=== PATIENT | female | born 2000 | race Caucasian/White ===

== ENCOUNTER 2022-10-23 18:00 | Inpatient (IN) ==
[2022-10-23] MEDS ORDERED: LORazepam 2 MG/1 ML VIAL IM STA ×2 (18:44→19:45)
[2022-10-23 20:15] LABS: Albumin Level 5.1 gm/dl (3.4-5.0); Bilirubin,Total 0.7 mg/dl (0.2-1.0); Calcium 9.7 mg/dl (8.6-10.3); Potassium 3.5 mmol/L (3.5-5.1)
[2022-10-23 20:16] LABS: Basophils # (auto) 0.05 K/uL (0-0.2); Basophils % (auto) 0.3 %; Hematocrit (blood only) 36.1 % (37.0-47.0); Immature Granulocytes # (auto) 0.11 K/uL (0.01-0.20); Immature Granulocytes % (auto) 0.6 %; Lymphocytes # (auto) 1.32 K/uL (1.2-3.4); Lymphocytes % (auto) 6.8 %; Mean Corpuscular Hemoglobin 27.5 pg (25.0-34.0); Mean Corpuscular Hgb Conc 33.2 g/dL (32.0-36.0); Mean Corpuscular Volume 82.6 fL (80.0-100.0); Mean Platelet Volume 10.5 fL (9.4-12.4); Monocytes # (auto) 0.76 K/uL (0.11-0.59); Monocytes % (auto) 3.9 %; Neutrophils # (auto) 17.21 K/uL (1.40-6.50); Neutrophils % (auto) 88.4 %; Platelet Count 420 K/uL (130-400); RDW Coefficient of Variation 13.2 % (11.5-14.5); RDW Standard Deviation 39.8 fL (36.4-46.3); Red Blood Count 4.37 M/uL (4.20-5.40); White Blood Count 19.45 K/ul (4.8-10.8)
[2022-10-23 20:21] LABS: Albumin Globulin Ratio 1.7 (0.9-2); Appearance Urine Cloudy (Clear); BUN Creatinine Ratio 16.9 (10-20); Bacteria Urine Automated 1+ (Negative); Bilirubin Urine Negative (Negative); Blood Urine Negative (Negative); Color Urine Yellow; Creatinine Clr Calc Pharmacy 104.5 ml/min; Epithelial Cell Urine Auto >30 /lpf (0-5); Est GFR (African American) 107.4 ml/min; Est GFR (Non-African American) 92.6 ml/min; Glucose Urine UA Negative (Negative); Ketones Urine 4+ (Negative); Leukocyte Esterase Urine Trace (Negative); Nitrite Urine Negative (Negative); Protein Urine 1+ (Negative); RBC Urine Automated 0-4 /hpf (0-4); Specific Gravity Urine 1.028 (1.000-1.030); Total Protein 8.1 gm/dl (6.0-8.3); Urobilinogen Urine Negative (Negative); pH Urine 5.5 (4.5-7.5)
[2022-10-23 20:22] LABS: Acetaminophen < 3 ug/ml (10-30); Salicylate < 3.0 mg/dl (3.0-30)
[2022-10-23] MEDS ORDERED: LACTATED RINGER'S 2,000 ML IV ONE (20:44)
[2022-10-23 21:16] LABS: Amphetamines+Metham, Urine Neg (Neg); Barbiturates, Urine Neg (Neg); Benzodiazepine, Urine Neg (Neg); Cocaine, Urine Neg (Neg); MDMA (Ecstacy), Urine Neg (Neg); Methadone, Urine Neg (Neg); Opiate, Urine Neg (Neg); Phencyclidine, Urine Neg (Neg)
[2022-10-23] MEDS ORDERED: LACTATED RINGER'S 1,000 ML IV ONE (23:43)
[2022-10-24 01:17] LABS: BUN Creatinine Ratio 15.3 (10-20); Calcium 8.6 mg/dl (8.6-10.3); Creatinine Clr Calc Pharmacy 129.2 ml/min; Est GFR (African American) 138.7 ml/min; Est GFR (Non-African American) 119.7 ml/min
--- NOTE | 2022-10-24 01:53 | Emergency Department Note ---
Impression & Plan Anxiety, Sleep deprivation ED Provider Note ED Provider Note NAME: SUZAN CARDOSO AGE:22 SEX: Female : 2000 ARRIVES VIA: Private vehicle INFORMANT: Patient ED PROVIDER(s): Rochelle Lozano DO CHIEF COMPLAINT: Mental health evaluation HPI: This is a 22-year-old female who arrives for mental health evaluation. Pat ient with a history of anxiety, and significant other bedside states she has not slept in 3 days. He states she was recently admitted for inpatient mental health treatment, and had been taking her medications routinely until Thursday when she began having difficulty sleeping and having increased anxiety. He states she has not had much to eat or drink these last 3 days additionally. No recent trauma. He states she does have episodes where she seems to become very weak and almost collapsed although he has been catching her. He states she has not struck her head not sustained any significant injury. Patient is not on anticoagulation or antiplatelet therapy. Boyfriend provides most of the h istory. Patient can answer some simple questions and will follow some commands. PAST MEDICAL HISTORY:See Below PAST SURGICAL HISTORY:See Below FAMILY HISTORY:See Below SOCIAL HISTORY:See Below HOME MEDICATIONS:See Below ALLERGIES:See Below VITALS:See Below PHYSICAL EXAMINATION: GENERAL: alert, well nourished, no distress, non-toxic EYE EXAM: normal conjunctiva, PERRL and EOM's grossly intact OROPHARYNX: no exudate, no erythema, lips, buccal mucosa, and tongue normal and mucous membranes are dry NECK: supple, no nuchal rigidity, no adenopathy, non-tender LUNGS: Clear to auscultation. Normal chest wall mechanics, no w/r/r HEART: no murmurs, S1 normal and S2 normal CHEST: b/l nipple piercings ABDOMEN: abdomen soft, non-tender, normo-active bowel sounds, no masses, no rebound or guarding. BACK: Back is symmetrical on inspection and there is no deformity, no midline tenderness, no CVA tenderness. SKIN: no rashes, no petechiae UPPER EXTREMITIES: upper extremities are grossly normal. FROM, nml pulses b/l. LOWER EXTREMITIES: No pitting edema. FROM, nml pulses b/l. Contusion noted to the left prepatellar region, no joint effusion, no bony tenderness with palpa tion. NEURO EXAM: Follows commands, knows her boyfriend and where she is at, disorganized thinking otherwise, cranial nerves II-XII grossly intact, normal speech, no facial droop,nogross weakness of arms, no gross weakness of legs. Gross sensation intact. No ataxia. Vital Signs: reviewed and remarkable Differential Diagnosis: mood disorder, infection, hypoglycemia, electrolyte abnormalities, noncompliance, dysrhythmia, dehydration, substance abuse, as well as others were considered. MEDICAL DECISION MAKING: This is a 22-year-old female who presents emergency department due to concern for increased anxiety and significant insomnia. Patient would follow commands and was oriented on arrival although had bizarre behavior and difficulty recalling events from the last 3 days. Boyfriend at bedside stated there had been significant sleep deprivation. Patient given IM Ativan with improvement. Labs drawn and sent, IV established, patient started on IV fluids due to significant dehydration. 3 L of IV fluid were given and a repeat BMP drawn and sent which was improved. I feel the initial anion gap is likely due to dehydration. Patient was able to rest here and was more clear with organized thinking initially from waking. Patient was evaluated by case management and initially felt safe for discharge, however friends at bedside began to verbalize their concern and describe other behaviors recently and patient became more agitated and disorganized again. Patient's boyfriend now filling out 302. Case signed out pending additional evaluation and disposition. I do not suspect occult infectious etiology at this time despite leukocytosis. I suspect this is more likely stress to margination. I do not suspect occult GREASE WORKER infection, CVA, ICH. No reported significant trauma. Contusions noted bilateral knees, however no bony tenderness to palpation and no joint effusions. I do not suspect occult fracture. Patient was ambulatory without any complaints of pain. Consultation(s): 0220: Patient seen and evaluated by case management. Patient now clear and organized in her thinking. States has been sleep deprived and smoking too much marijuana. Admits to playing frequent video games for hours on and throughout the day. Admits to not taking medications as prescribed. Denies any SI or HI. feels much more calm now and feels as though she can safely go home. 0350: Friends at bedside now filing 302 petition bc they fell she cannot care for herself and they cannot redirect or help her. They feel she performs dangerous actions and is noncompliant with her medications. ER Treatment Provided: See below 0424: Patient signed out to Dr. Samson. Diagnostics Interpreted By Me: -ECG: [] -Cardiac Monitoring: An order was placed for continuous cardiac monitoring. The monitor shows a rate of 80 with normal sinus rhythm. -Laboratory studies: As stated above and show below. -Imaging studies: [] Triage Nursing Note Reviewed Prior/Outside Records Reviewed Past Med/Surg History Medical History Depression Surgical History [place] teeth removed Family History Grandfather (Maternal) Myocardial infarction Mother No problems noted. Father No problems noted. Brother No problems noted. Sister No problems noted. Grandmother (Maternal) Ovarian cancer pt believes its in the ovary Denies family history of Prostate cancer Breast cancer Colorectal cancer Social History Smoking Status: Unknown if ever smoked Second Hand Exposure: No; Do You Dip or Chew Tobacco: No; Hx Alcohol Use: No Hx Substance Use: No Preferred Language: Lithuanian Communication Ability: Effective Visual Impairment: No Limitations Hearing Ability: Normal Soils Engineer Required: No Beliefs That Will Affect Care: None marital status: Single Current Living Situation: Other Current Living Situation Comment: LIVES WITH ROOMATE current occupational status: employed current occupation: [employer] Feels Safe at Home: No Childhood Exposure to Second-Hand Smoke: No Diet: regular caffeine: No Dental Care, Regularly: Yes Physical Activity Frequency: Does not Exercise Seatbelt Use: always Sunscreen Use: Yes Gender Identity: Nonbinary Assistive Devices: None Allergies Allergies Allergy/AdvReac Type Severity Reaction Status Date / Time egg Allergy Unknown Unknown Unverified 10/15/22 18:24 Penicillins Allergy HIVES Verified 10/15/22 18:24 Home Meds Previous Rx's Medication Instructions Recorded hydroxyzine HCl 25 mg tablet 25 mg PO BID PRN anxiety/panic 10/06/22 attack 30 days #60 tabs hydroxyzine HCl 50 mg tablet 50 mg PO HS PRN insomnia 30 days 10/06/22 #30 tabs lamotrigine 100 mg tablet 50 mg PO DAILY MDD 30 days #15 tabs 10/06/22 venlafaxine 75 mg capsule,extended 75 mg PO QAM MDD/INDIO 30 days #30 10/06/22 release 24 hr caps Results & Data (ED) Vital Signs Vital Signs - 24 hr 10/23/22 17:46 10/24/22 00:23 10/24/22 04:00 Temperature 36.5 C Temperature Source Oral Pulse Rate 109 H Pulse Rate [Right Finger] 83 100 H Pulse Rhythm [Right Finger] Regular Regular Pulse Strength [Right Finger] Normal Normal Respiratory Rate 16 18 16 Respiratory Effort / Characteristics Non-Labored Non-Labored Spontaneous Respiratory Depth Normal Normal Respiratory Pattern Regular Regular Blood Pressure 138/81 Blood Pressure [Right Arm] 106/69 143/79 H Blood Pressure Mean 100 Blood Pressure Mean [Right Arm] 81 100 Blood Pressure Position [Right Arm] Lying Pulse Oximetry 98 100 100 Oxygen Delivery Method Room Air Room Air Room Air Sepsis Recent Fever Within 48 Hours No Sepsis New/Unexplained Change in Mental Status Yes Sepsis Action Taken by Nursing No Action Required Laboratory Data 10/23/22 19:30 10/24/22 00:45 Lab Results 10/23/22 10/23/22 10/23/22 Range/Units 19:30 19:30 19:30 WBC 19.45 H (4.8-10.8) K/ul RBC 4.37 (4.20-5.40) M/uL Hgb 12.0 (12.0-16.0) g/dl Hct 36.1 L (37.0-47.0) % MCV 82.6 (80.0-100.0) fL MCH 27.5 (25.0-34.0) pg MCHC 33.2 (32.0-36.0) g/dL RDW Std Deviation 39.8 (36.4-46.3) fL RDW Coeff of Frederic 13.2 (11.5-14.5) % Plt Count 420 H (130-400) K/uL MPV 10.5 (9.4-12.4) fL Immature Gran % (Auto) 0.6 % Neut % (Auto) 88.4 % Lymph % (Auto) 6.8 % [place] % (Auto) 3.9 % Eos % (Auto) 0.0 % Baso % (Auto) 0.3 % Neut # (Auto) 17.21 H (1.40-6.50) K/uL Lymph # (Auto) 1.32 (1.2-3.4) K/uL [place] # (Auto) 0.76 H (0.11-0.59) K/uL Eos # (Auto) 0.00 (0-0.50) K/uL Baso # (Auto) 0.05 (0-0.2) K/uL Immature Gran # (Auto) 0.11 (0.01-0.20) K/uL Sodium 139 (136-145) mmol/L Potassium 3.5 (3.5-5.1) mmol/L Chloride 107 (98-107) mmol/L Carbon Dioxide 15 L (21-32) mmol/L Anion Gap 17 H (3-11) BUN 15 (6-23) mg/dl Creatinine 0.89 (0.6-1.2) mg/dl Est Cr Clr Drug Dosing 104.5 ml/min Est GFR ( Amer) 107.4 ml/min Est GFR (Non-Af Amer) 92.6 ml/min BUN/Creatinine Ratio 16.9 (10-20) Glucose 77 (70-99(Fasting)) mg/dl Calcium 9.7 (8.6-10.3) mg/dl Total Bilirubin 0.7 (0.2-1.0) mg/dl AST 28 (13-39) U/L ALT 16 (7-52) U/L Alkaline Phosphatase 87 (34-104) U/L Total Protein 8.1 (6.0-8.3) gm/dl Albumin 5.1 H (3.4-5.0) gm/dl Globulin 3.0 (2.5-4.0) gm/dl Albumin/Globulin Ratio 1.7 (0.9-2) TSH 0.730 (0.300-4.500) uIu/ml Urine Color Urine Appearance (Clear) Urine pH (4.5-7.5) Ur Specific [place] (1.000-1.030) Urine Protein (Negative) Urine Glucose (UA) (Negative) Urine Ketones (Negative) Urine Blood (Negative) Urine Nitrite (Negative) Urine Bilirubin (Negative) Urine Urobilinogen (Negative) Ur Leukocyte Esterase (Negative) Urine WBC (Auto) (0-5) /hpf Urine RBC (Auto) (0-4) /hpf U Hyaline Cast (Auto) (0-5) /lpf U Epithel Cells (Auto) (0-5) /lpf Urine Bacteria (Auto) (Negative) Salicylates (3.0-30) mg/dl Urine Opiates Screen (Neg) Ur Methadone, Qual (Neg) Acetaminophen (10-30) ug/ml Urine Barbiturates (Neg) Ur Phencyclidine (PCP) (Neg) U Amphetamin/Meth Scrn (Neg) MDMA (Ecstasy) Screen (Neg) U Benzodiazepines Scrn (Neg) Ur Cocaine Metabolite (Neg) U Marijuana (THC) Screen (Neg) Ethyl Alcohol mg/dL (<10.0) mg/dl 10/23/22 10/23/22 10/23/22 Range/Units 19:30 19:30 19:30 WBC (4.8-10.8) K/ul RBC (4.20-5.40) M/uL Hgb (12.0-16.0) g/dl Hct (37.0-47.0) % MCV (80.0-100.0) fL MCH (25.0-34.0) pg MCHC (32.0-36.0) g/dL RDW Std Deviation (36.4-46.3) fL RDW Coeff of Frederic (11.5-14.5) % Plt Count (130-400) K/uL MPV (9.4-12.4) fL Immature Gran % (Auto) % Neut % (Auto) % Lymph % (Auto) % [place] % (Auto) % Eos % (Auto) % Baso % (Auto) % Neut # (Auto) (1.40-6.50) K/uL Lymph # (Auto) (1.2-3.4) K/uL [place] # (Auto) (0.11-0.59) K/uL Eos # (Auto) (0-0.50) K/uL Baso # (Auto) (0-0.2) K/uL Immature Gran # (Auto) (0.01-0.20) K/uL Sodium (136-145) mmol/L Potassium (3.5-5.1) mmol/L Chloride (98-107) mmol/L Carbon Dioxide (21-32) mmol/L Anion Gap (3-11) BUN (6-23) mg/dl Creatinine (0.6-1.2) mg/dl Est Cr Clr Drug Dosing ml/min Est GFR ( Amer) ml/min Est GFR (Non-Af Amer) ml/min BUN/Creatinine Ratio (10-20) Glucose (70-99(Fasting)) mg/dl Calcium (8.6-10.3) mg/dl Total Bilirubin (0.2-1.0) mg/dl AST (13-39) U/L ALT (7-52) U/L Alkaline Phosphatase (34-104) U/L Total Protein (6.0-8.3) gm/dl Albumin (3.4-5.0) gm/dl Globulin (2.5-4.0) gm/dl Albumin/Globulin Ratio (0.9-2) TSH (0.300-4.500) uIu/ml Urine Color Yellow Urine Appearance Cloudy A (Clear) Urine pH 5.5 (4.5-7.5) Ur Specific [place] 1.028 (1.000-1.030) Urine Protein 1+ H (Negative) Urine Glucose (UA) Negative (Negative) Urine Ketones 4+ H (Negative) Urine Blood Negative (Negative) Urine Nitrite Negative (Negative) Urine Bilirubin Negative (Negative) Urine Urobilinogen Negative (Negative) Ur Leukocyte Esterase Trace H (Negative) Urine WBC (Auto) 10-30 H (0-5) /hpf Urine RBC (Auto) 0-4 (0-4) /hpf U Hyaline Cast (Auto) 1-5 (0-5) /lpf U Epithel Cells (Auto) >30 H (0-5) /lpf Urine Bacteria (Auto) 1+ H (Negative) Salicylates < 3.0 L (3.0-30) mg/dl Urine Opiates Screen (Neg) Ur Methadone, Qual (Neg) Acetaminophen < 3 L (10-30) ug/ml Urine Barbiturates (Neg) Ur Phencyclidine (PCP) (Neg) U Amphetamin/Meth Scrn (Neg) MDMA (Ecstasy) Screen (Neg) U Benzodiazepines Scrn (Neg) Ur Cocaine Metabolite (Neg) U Marijuana (THC) Screen (Neg) Ethyl Alcohol mg/dL < 10.0 (<10.0) mg/dl 10/23/22 10/24/22 Range/Units 19:30 00:45 WBC (4.8-10.8) K/ul RBC (4.20-5.40) M/uL Hgb (12.0-16.0) g/dl Hct (37.0-47.0) % MCV (80.0-100.0) fL MCH (25.0-34.0) pg MCHC (32.0-36.0) g/dL RDW Std Deviation (36.4-46.3) fL RDW Coeff of Frederic (11.5-14.5) % Plt Count (130-400) K/uL MPV (9.4-12.4) fL Immature Gran % (Auto) % Neut % (Auto) % Lymph % (Auto) % [place] % (Auto) % Eos % (Auto) % Baso % (Auto) % Neut # (Auto) (1.40-6.50) K/uL Lymph # (Auto) (1.2-3.4) K/uL [place] # (Auto) (0.11-0.59) K/uL Eos # (Auto) (0-0.50) K/uL Baso # (Auto) (0-0.2) K/uL Immature Gran # (Auto) (0.01-0.20) K/uL Sodium 136 (136-145) mmol/L Potassium 4.0 (3.5-5.1) mmol/L Chloride 108 H (98-107) mmol/L Carbon Dioxide 18 L (21-32) mmol/L Anion Gap 10 (3-11) BUN 11 (6-23) mg/dl Creatinine 0.72 (0.6-1.2) mg/dl Est Cr Clr Drug Dosing 129.2 ml/min Est GFR ( Amer) 138.7 ml/min Est GFR (Non-Af Amer) 119.7 ml/min BUN/Creatinine Ratio 15.3 (10-20) Glucose 90 (70-99(Fasting)) mg/dl Calcium 8.6 (8.6-10.3) mg/dl Total Bilirubin (0.2-1.0) mg/dl AST (13-39) U/L ALT (7-52) U/L Alkaline Phosphatase (34-104) U/L Total Protein (6.0-8.3) gm/dl Albumin (3.4-5.0) gm/dl Globulin (2.5-4.0) gm/dl Albumin/Globulin Ratio (0.9-2) TSH (0.300-4.500) uIu/ml Urine Color Urine Appearance (Clear) Urine pH (4.5-7.5) Ur Specific [place] (1.000-1.030) Urine Protein (Negative) Urine Glucose (UA) (Negative) Urine Ketones (Negative) Urine Blood (Negative) Urine Nitrite (Negative) Urine Bilirubin (Negative) Urine Urobilinogen (Negative) Ur Leukocyte Esterase (Negative) Urine WBC (Auto) (0-5) /hpf Urine RBC (Auto) (0-4) /hpf U Hyaline Cast (Auto) (0-5) /lpf U Epithel Cells (Auto) (0-5) /lpf Urine Bacteria (Auto) (Negative) Salicylates (3.0-30) mg/dl Urine Opiates Screen Neg (Neg) Ur Methadone, Qual Neg (Neg) Acetaminophen (10-30) ug/ml Urine Barbiturates Neg (Neg) Ur Phencyclidine (PCP) Neg (Neg) U Amphetamin/Meth Scrn Neg (Neg) MDMA (Ecstasy) Screen Neg (Neg) U Benzodiazepines Scrn Neg (Neg) Ur Cocaine Metabolite Neg (Neg) U Marijuana (THC) Screen Pos H (Neg) Ethyl Alcohol mg/dL (<10.0) mg/dl Administered Medications Discontinued Medications Lactated Ringer's (Lr) 2,000 mls @ 999 mls/hr IV .Q2H1M ONE Stop: 10/23/22 22:44 Last Infusion: 10/24/22 00:19 Dose: 0 mls/hr Documented By: Admin: 10/23/22 20:56 Dose: 999 mls/hr Documented By: JAKE Lactated Ringer's (Lr) 1,000 mls @ 999 mls/hr IV .Q1H1M ONE Stop: 10/24/22 00:43 Last Infusion: 10/24/22 01:45 Dose: 0 mls/hr Documented By: Admin: 10/24/22 00:19 Dose: 999 mls/hr Documented By: NOHELIA Lorazepam (Lorazepam 2 Mg/1 Ml Vial) 2 mg IM NOW STA Stop: 10/23/22 18:45 Last Admin: 10/23/22 18:50 Dose: 2 mg Documented By: NANETTE Lorazepam (Lorazepam 2 Mg/1 Ml Vial) 2 mg IM NOW STA Stop: 10/23/22 19:46 Last Admin: 10/23/22 20:23 Dose: Not Given Documented By: JAKE Discharge Plan Visit Data Chief Complaint: Mental Health Evaluation ED Provider: Rochelle Lozano Discharge Problem: Anxiety, Sleep deprivation Patient Disposition: Home - Self-Care Condition: Good Discharge Instructions Kalyn/Other Patient Handouts: ED Anxiety Reaction, ED Insomnia, ED Marijuana Abuse Activity Restrictions/Additional Instructions: Please take your medications as prescribed. Please drink plenty of water and stay well-hydrated. Please try to get 7 to 8 hours of sleep and establish good sleep hygiene. Please cut back on your use of marijuana. Please avoid any other recreational drugs use of alcohol as these can contribute to trouble sleeping. Please avoid use of caffeine which can also contribute to trouble sleeping. Please follow-up with your mental health providers as an outpatient. If you have any new or concerning symptoms, you are welcome return the emergency room at any time. Forms Stand Alone Forms: [facility], Suicide Prevention Resources, Virtual Emergency Department, Important Visit Information Prescriptions Prescriptions: No Action hydroxyzine HCl 25 mg Tablet 25 mg PO BID PRN (Reason: anxiety/panic attack) 30 Days Qty: 60 0RF lamotrigine 100 mg tablet 50 mg PO DAILY 30 Days Qty: 15 0RF hydroxyzine HCl 50 mg tablet 50 mg PO HS PRN (Reason: insomnia) 30 Days Qty: 30 0RF venlafaxine 75 mg Capsule,Extended Release 24hr 75 mg PO QAM 30 Days Qty: 30 0RF Referrals Referrals: Emily Chung MD [Primary Care Provider] - (2-3 days)
--- NOTE | 2022-10-24 05:08 | Emergency Department Note ---
ED Visit Note This case was signed out to me at change of shift awaiting evaluation by staff from [facility] A 302 was petitioned. However, the patient has decided to sign herself in voluntarily. She was evaluated by staff from [facility] and they are willing to take her onto their unit. .
[2022-10-24] MEDS ORDERED: ALUMINUM/MAGNESIUM SUSP 30 ML UDC PO PRN (06:37)
[2022-10-24] MEDS ORDERED: ACETAMINOPHEN 325 MG TAB PO PRN (06:37)
[2022-10-24] MEDS ORDERED: SODIUM CHLORIDE 0.65% NA SOLN 45 ML (OCEAN) PRN (06:37)
[2022-10-24] MEDS ORDERED: MAGNESIUM HYDROXIDE SUSP 30 ML UDC PO PRN (06:37)
[2022-10-24] MEDS ORDERED: BISMUTH SUBSALICYLATE LIQD 236 ML PO PRN (06:37)
[2022-10-24] MEDS ORDERED: OLANZapine ZYDIS 5 MG ORALLY DIS. TAB PO PRN ×2 (06:40→14:24)
--- NOTE | 2022-10-24 08:55 | History & Physical ---
Date of Service October 24, 2022 Impression / Recommendations Rafa Whalen is a 22 year old gender non-binary individual with a history of MDD, INDIO and multiple recent psychiatric admissions in August and September who was admitted for concern for acute maria. Diagnostically consistent with unspecified psychosis/mood disorder with differential including acute maria 2/2 BPAD versus cannabis-induced mood disorder versus 2/2 medical cause given recent poor po intake and elevated WBC (though ED provider felt this was due to margination and saw no signs of acute infectious process). They are deemed in need of psychiatric hospitalization for diagnostic clarification, safety and stabiliza tion, medication management and development of further coping skills. Marlee was unable to participate in discussion about medication risks and benefits but did consent to trial of olanzapine to help with sleep and mood given concern for maria. MNPR due to maria/psychosis and non-binary (1) Unspecified mood [affective] disorder: (2) Maria: (3) Cannabis use disorder: Plan 10/24/2022: The patient was admitted to the [facility] ([facility] mental [facility] unit) on q15 min checks (behavioral with suicide precautions) for safety. The patient will participate in group, recreational, and milieu therapies and will be offered additional individual and family sessions as clinically appropriate. -Utilize olanzapine 5mg ODT BID for agitation/maria/psychosis -Hold on lmaictal and Effexor given unclear recent adherence and concern for maria -Elopement precautions Inventory Assets Strengths: supportive relationships, willing to get treatment Needs: safety and stabilization, medication adjustment, additional coping skills, increased outpatient services Suicide Risk Level Suicide Risk Level: Moderate (q15 min suicide checks) (unclear if having any recent SI, denies current, appears instead to have significantly elevated mood but given disorganization and history of depression will monitor closely, feels safe in the hospital) Risk Factors Assessment Male: No : Yes Mental Health Diagnoses: Yes Substance Use Disorders: Yes Previous Attempt: No Previous Psychiatric Hospitalization: Yes Protective Factors Assessment Employed: No Stable Relationships: Yes Psychiatric History Identifying Data MARLEE CARDOSO is a 22-year-old non-binary individual who currently lives in [place], has a history of MDD, INDIO, sensory reactivity, cannabis use and was admitted on 10/24/22 05:43 on a 201 voluntary commitment for concern for maria. Chief Complaint "I don't need to sleep, I feel great!". History of Present Illness Marlee presented to the hospital with their partner and friend who expressed concern that they had not slept in the last three days. While in the ED they were initially agitated and required a dose of IM ativan and then slept some but awoke with ongoing signs of mood lability and disorganization. While in the ED they also reported hypersexuality and increased anxiety. Their partner reported they have been having poor recent po intake, not sleeping well and had been using large amounts of cannabis and unclear adherence with medications, particularly lamictal. They were discharged from [facility] on 10/06/2022 on Effexor XR 75mg daily and lamictal 50mg daily. On arrival to the [facility] Marlee was walking in the hallway this morning and shaking ice from their water bottle all over the floor of the hallway. They attempted to walk by a nurse into the stairwell and required redirection. They recognized me from their recent inpatient admission in late September. They were observed by nursing to be engaging in an attempt to masturbate in the entrance to their room. Wrote about azalia amilcar lyrics and struggled to engage in any type of interview with me. Did then agree to take po dose of olanzapine and asked to move to the quiet room to sleep. Past Psychiatric History Current Psychiatric Diagnosis: "A fuck ton" - don't remember Outpatient Services: has therapist via telemedicine, unclear if still seeing Dr. Soto Previous Psych Admissions: [facility] in August 2022 [facility] September 2022 for depression History of Previous Suicide Attempt: No Past Medication Trials: trazodone, Ativan, Celexa 40, effexor, lamictal Past Head Trauma/Neuro History unable to assess Allergies Allergy/AdvReac Type Severity Reaction Status Date / Time egg Allergy Unknown Unknown Unverified 10/15/22 18:24 Penicillins Allergy HIVES Verified 10/15/22 18:24 Home Medications Medication Instructions Recorded Confirmed Type hydroxyzine HCl 25 mg tablet 25 mg PO BID PRN anxiety/panic 10/06/22 10/15/22 Rx attack 30 days #60 tabs hydroxyzine HCl 50 mg tablet 50 mg PO HS PRN insomnia 30 days 10/06/22 10/15/22 Rx #30 tabs lamotrigine 100 mg tablet 50 mg PO DAILY MDD 30 days #15 tabs 10/06/22 10/15/22 Rx venlafaxine 75 mg capsule,extended 75 mg PO QAM MDD/INDIO 30 days #30 10/06/22 10/15/22 Rx release 24 hr caps Family History Family History of: Doesn't Know Alcohol History Hx of Alcohol Use Over the Past 12 Months: Yes ("rarely") AUDIT Total Score: 1 Smoking Use Have You Smoked or Used Tobacco Products in the Last 30 Days: Refused to Answer Smoking Status: Unknown if ever smoked Substance History Hx of Prescription Med Misuse Over the Past 12 Months: No Hx of Over the Counter Med Misuse Over the Past 12 Months: No Hx of Inhalent Misuse Over the Past 12 Months: No Hx of Organic Substance Use Over the Past 12 Months: Yes (Marijuana - using a "fuck ton lately") Hx of Illegal Substances/Street Drug Use Over Past 12 Months: No Problems as a Result of Past Substance Use: None Identified Personal History Living Arrangements: Apartment Highest Grade Completed: High School Graduate Beliefs That Will Affect Care: None Hx Traumatic Life Events: No (none reported) Patient History Medical History Depression Surgical History Nicolaus teeth removed Family History Grandfather (Maternal) Myocardial infarction Mother No problems noted. Father No problems noted. Brother No problems noted. Sister No problems noted. Grandmother (Maternal) Ovarian cancer pt believes its in the ovary Denies family history of Prostate cancer Breast cancer Colorectal cancer Social History Smoking Status: Unknown if ever smoked Second Hand Exposure: No; Do You Dip or Chew Tobacco: No; Hx Alcohol Use: No Hx Substance Use: No Preferred Language: Polish Communication Ability: Effective Visual Impairment: No Limitations Hearing Ability: Normal Assistant Director Of Admissions Required: No Beliefs That Will Affect Care: None marital status: Single Current Living Situation: Other Current Living Situation Comment: LIVES WITH ROOMATE current occupational status: employed current occupation: [employer] Feels Safe at Home: Yes Childhood Exposure to Second-Hand Smoke: No Diet: regular caffeine: No Dental Care, Regularly: Yes Physical Activity Frequency: Does not Exercise Seatbelt Use: always Sunscreen Use: Yes Gender Identity: Nonbinary Assistive Devices: None Review of Systems Review of Systems: Unobtainable due to mental health condition Physical Exam Psychiatric: Orientation: alert, oriented to person and oriented to place Apperance: + disheveled Eye Contact: + fair eye contact Motor Behavior: steady gait and station and + psychomotor agitation Speech: + abnormal rate/rhythm/volume of speech (rapid) Affect: + labile affect Mood: no depressed mood and no anxious mood Thought Process: + tangential thought process and + looseness of associations Thought Content: + delusions (hypersexual) Suicidal Thoughts: denies suicidal thoughts Homicidal Thoughts: denies homicidal thoughts Hallucinations: + auditory hallucinations (possible, reported in ED hearing voice of friend who had ); no visual hallucinations Insight: + severely impaired insight Judgment: + limited judgement Vital Signs (Past 24 Hours): Last Vital Signs Temp 36.6 C 10/24/22 06:54 Pulse 108 H 10/24/22 06:54 Resp 18 10/24/22 06:54 BP 149/90 H 10/24/22 06:54 Pulse Ox 100 10/24/22 06:03 O2 Del Method Room Air 10/24/22 04:00 Exam Statement: A physical exam was performed in the ED by Dr. Armando for the purposes of medical clearance. I accept that physical as correct and adequate for the purposes of the inpatient physical exam. Results & Data ([facility]) Laboratory Results Laboratory Results - last 24 hr 10/23/22 10/23/22 10/23/22 19:30 19:30 19:30 WBC 19.45 H RBC 4.37 Hgb 12.0 Hct 36.1 L MCV 82.6 MCH 27.5 MCHC 33.2 RDW Std Deviation 39.8 RDW Coeff of Frederic 13.2 Plt Count 420 H MPV 10.5 Immature Gran % (Auto) 0.6 Neut % (Auto) 88.4 Lymph % (Auto) 6.8 Glasscock % (Auto) 3.9 Eos % (Auto) 0.0 Baso % (Auto) 0.3 Neut # (Auto) 17.21 H Lymph # (Auto) 1.32 Glasscock # (Auto) 0.76 H Eos # (Auto) 0.00 Baso # (Auto) 0.05 Immature Gran # (Auto) 0.11 Sodium 139 Potassium 3.5 Chloride 107 Carbon Dioxide 15 L Anion Gap 17 H BUN 15 Creatinine 0.89 Est Cr Clr Drug Dosing 104.5 Est GFR ( Amer) 107.4 Est GFR (Non-Af Amer) 92.6 BUN/Creatinine Ratio 16.9 Glucose 77 Calcium 9.7 Total Bilirubin 0.7 AST 28 ALT 16 Alkaline Phosphatase 87 Total Protein 8.1 Albumin 5.1 H Globulin 3.0 Albumin/Globulin Ratio 1.7 TSH 0.730 Urine Color Urine Appearance Urine pH Ur Specific B[place] Urine Protein Urine Glucose (UA) Urine Ketones Urine Blood Urine Nitrite Urine Bilirubin Urine Urobilinogen Ur Leukocyte Esterase Urine WBC (Auto) Urine RBC (Auto) U Hyaline Cast (Auto) U Epithel Cells (Auto) Urine Bacteria (Auto) Salicylates Urine Opiates Screen Ur Methadone, Qual Acetaminophen Urine Barbiturates Ur Phencyclidine (PCP) U Amphetamin/Meth Scrn MDMA (Ecstasy) Screen U Benzodiazepines Scrn Ur Cocaine Metabolite U Marijuana (THC) Screen U Marijuana THC Carboxy Drug Screen Comment Ethyl Alcohol mg/dL SARS-CoV-2 (PCR) 10/23/22 10/23/22 10/23/22 19:30 19:30 19:30 WBC RBC Hgb Hct MCV MCH MCHC RDW Std Deviation RDW Coeff of Frederic Plt Count MPV Immature Gran % (Auto) Neut % (Auto) Lymph % (Auto) Glasscock % (Auto) Eos % (Auto) Baso % (Auto) Neut # (Auto) Lymph # (Auto) Glasscock # (Auto) Eos # (Auto) Baso # (Auto) Immature Gran # (Auto) Sodium Potassium Chloride Carbon Dioxide Anion Gap BUN Creatinine Est Cr Clr Drug Dosing Est GFR ( Amer) Est GFR (Non-Af Amer) BUN/Creatinine Ratio Glucose Calcium Total Bilirubin AST ALT Alkaline Phosphatase Total Protein Albumin Globulin Albumin/Globulin Ratio TSH Urine Color Yellow Urine Appearance Cloudy A Urine pH 5.5 Ur Specific Bovina 1.028 Urine Protein 1+ H Urine Glucose (UA) Negative Urine Ketones 4+ H Urine Blood Negative Urine Nitrite Negative Urine Bilirubin Negative Urine Urobilinogen Negative Ur Leukocyte Esterase Trace H Urine WBC (Auto) 10-30 H Urine RBC (Auto) 0-4 U Hyaline Cast (Auto) 1-5 U Epithel Cells (Auto) >30 H Urine Bacteria (Auto) 1+ H Salicylates < 3.0 L Urine Opiates Screen Ur Methadone, Qual Acetaminophen < 3 L Urine Barbiturates Ur Phencyclidine (PCP) U Amphetamin/Meth Scrn MDMA (Ecstasy) Screen U Benzodiazepines Scrn Ur Cocaine Metabolite U Marijuana (THC) Screen U Marijuana THC Carboxy Drug Screen Comment Ethyl Alcohol mg/dL < 10.0 SARS-CoV-2 (PCR) 10/23/22 10/23/22 10/24/22 19:30 19:30 00:45 WBC RBC Hgb Hct MCV MCH MCHC RDW Std Deviation RDW Coeff of Frederic Plt Count MPV Immature Gran % (Auto) Neut % (Auto) Lymph % (Auto) Glasscock % (Auto) Eos % (Auto) Baso % (Auto) Neut # (Auto) Lymph # (Auto) Glasscock # (Auto) Eos # (Auto) Baso # (Auto) Immature Gran # (Auto) Sodium 136 Potassium 4.0 Chloride 108 H Carbon Dioxide 18 L Anion Gap 10 BUN 11 Creatinine 0.72 Est Cr Clr Drug Dosing 129.2 Est GFR ( Amer) 138.7 Est GFR (Non-Af Amer) 119.7 BUN/Creatinine Ratio 15.3 Glucose 90 Calcium 8.6 Total Bilirubin AST ALT Alkaline Phosphatase Total Protein Albumin Globulin Albumin/Globulin Ratio TSH Urine Color Urine Appearance Urine pH Ur Specific [place] Urine Protein Urine Glucose (UA) Urine Ketones Urine Blood Urine Nitrite Urine Bilirubin Urine Urobilinogen Ur Leukocyte Esterase Urine WBC (Auto) Urine RBC (Auto) U Hyaline Cast (Auto) U Epithel Cells (Auto) Urine Bacteria (Auto) Salicylates Urine Opiates Screen Neg Ur Methadone, Qual Neg Acetaminophen Urine Barbiturates Neg Ur Phencyclidine (PCP) Neg U Amphetamin/Meth Scrn Neg MDMA (Ecstasy) Screen Neg U Benzodiazepines Scrn Neg Ur Cocaine Metabolite Neg U Marijuana (THC) Screen Pos H U Marijuana THC Carboxy Pending Drug Screen Comment Pending Ethyl Alcohol mg/dL SARS-CoV-2 (PCR) 10/24/22 07:10 WBC RBC Hgb Hct MCV MCH MCHC RDW Std Deviation RDW Coeff of Frederic Plt Count MPV Immature Gran % (Auto) Neut % (Auto) Lymph % (Auto) Glasscock % (Auto) Eos % (Auto) Baso % (Auto) Neut # (Auto) Lymph # (Auto) Glasscock # (Auto) Eos # (Auto) Baso # (Auto) Immature Gran # (Auto) Sodium Potassium Chloride Carbon Dioxide Anion Gap BUN Creatinine Est Cr Clr Drug Dosing Est GFR ( Amer) Est GFR (Non-Af Amer) BUN/Creatinine Ratio Glucose Calcium Total Bilirubin AST ALT Alkaline Phosphatase Total Protein Albumin Globulin Albumin/Globulin Ratio TSH Urine Color Urine Appearance Urine pH Ur Specific Bovina Urine Protein Urine Glucose (UA) Urine Ketones Urine Blood Urine Nitrite Urine Bilirubin Urine Urobilinogen Ur Leukocyte Esterase Urine WBC (Auto) Urine RBC (Auto) U Hyaline Cast (Auto) U Epithel Cells (Auto) Urine Bacteria (Auto) Salicylates Urine Opiates Screen Ur Methadone, Qual Acetaminophen Urine Barbiturates Ur Phencyclidine (PCP) U Amphetamin/Meth Scrn MDMA (Ecstasy) Screen U Benzodiazepines Scrn Ur Cocaine Metabolite U Marijuana (THC) Screen U Marijuana THC Carboxy Drug Screen Comment Ethyl Alcohol mg/dL SARS-CoV-2 (PCR) NEGATIVE Current Inpatient Medications Current Inpatient Medications: Current Inpatient Medications Acetaminophen (Acetaminophen 325 Mg Tab) 650 mg PO Q4H PRN PRN Reason: Headache or Minor Fever Stop: 11/23/22 06:36 Al Hydrox/Mg Hydrox/Simethicone (Aluminum/Magnesium Susp 30 Ml Udc) 30 ml PO Q4H PRN PRN Reason: GI Upset Stop: 11/23/22 06:36 Bismuth Subsalicylate (Bismuth Subsalicylate Liqd 236 Ml) 15 ml PO PRN PRN PRN Reason: Loose Stool Stop: 11/23/22 06:36 Hydroxyzine HCl (Hydroxyzine Hcl 25 Mg Tab) 50 mg PO HSZ PRN PRN Reason: Insomnia Stop: 11/23/22 06:36 Hydroxyzine HCl (Hydroxyzine Hcl 25 Mg Tab) 25 mg PO Q4H PRN PRN Reason: Anxiety Stop: 11/23/22 06:36 Magnesium Hydroxide (Magnesium Hydroxide Susp 30 Ml Udc) 30 ml PO DAILY PRN PRN Reason: Constipation Stop: 11/23/22 06:36 Olanzapine (Olanzapine Zydis 5 Mg Orally Dis. Tab) 5 mg PO BID PRN PRN Reason: agitation/psychosis Stop: 11/23/22 06:39 Last Admin: 10/24/22 08:20 Dose: 5 mg Sodium Chloride (Sodium Chloride 0.65% Na Soln 45 Ml ([place])) 1 - 2 sprays NA PRN PRN PRN Reason: Nasal Dryness/Congestion Stop: 11/23/22 06:36
[2022-10-24] MEDS: hydrOXYzine HCl 25 MG TAB PO PRN (23:12)
--- NOTE | 2022-10-25 15:10 | Psychiatric Progress Note ---
Date of Service October 25, 2022 Impression / Recommendations Rafa Whalen is a 22 year old gender non-binary individual with a history of MDD, INDIO and multiple recent psychiatric admissions in August and September who was admitted for concern for acute maria. Diagnostically consistent with unspecified psychosis/mood disorder with differential including acute maria 2/2 BPAD versus cannabis-induced mood disorder versus 2/2 medical cause given recent poor po intake and elevated WBC (though ED provider felt this was due to margination and saw no signs of acute infectious process). They are deemed in need of psychiatric hospitalization for diagnostic clarification, safety and stabiliz ation, medication management and development of further coping skills. MNPR due to maria/psychosis and non-binary 10/25/22: as per Dr. Lopez in [place]. Marked improvement, suspect substance induced component exacerbating an underlying bipolar II variant. (1) Unspecified mood [affective] disorder: (2) Amria: (3) Cannabis use disorder: Plan 10/25/2022: continue liberal prn Zyprexa with Zyprexa 5 mg hs scheduled. Prn Vistaril for anxiety. 10/24/2022: The patient was admitted to the [facility] ([facility] mental health unit) on q15 min checks (behavioral with suicide precautions) for safety. The patient will participate in group, recreational, and milieu therapies and will be offered additional individual and family sessions as clinically appropriate. -Utilize olanzapine 5mg ODT BID for agitation/maria/psychosis -Hold on lmaictal and Effexor given unclear recent adherence and concern for maria -Elopement precautions Inventory Assets Strengths: supportive relationships, willing to get treatment Needs: safety and stabilization, medication adjustment, additional coping skills, increased outpatient services Suicide Risk Level Suicide Risk Level: Moderate (q15 min suicide checks) Risk Factors Assessment Male: No : Yes Do You Have Access To A Gun?: No Mental Health Diagnoses: Yes Substance Use Disorders: Yes Previous Attempt: No Previous Psychiatric Hospitalization: Yes Protective Factors Assessment Employed: No Stable Relationships: Yes Interval History Identifying Information SUZAN CARDOSO is a 22-year-old non-binary individual who currently lives in [place], has a history of MDD, INDIO, sensory reactivity, cannabis use and was admitted on 10/24/22 05:43 on a 201 voluntary commitment for concern for maria. Chief Complaint "I feel like in a good balance right now but I worry I need something for anxiety." Review of Systems Sleep Information Total Hours of Sleep: 5 Meal Information Percent Meal Consumed - Breakfast: 0 Percent Meal Consumed - Lunch: 50 Nutrition Comment: Patient asleep Subjective Subjective Patient was seen & assessed and interval progress reviewed with nursing and social work. Patient is signifcantly improved today in that overly bright but more organized and appropriate in conversation. No overt oversexuality. Slept much of day yesterday and overnight. Cooperative with PO Zyprexa. Unclear how much of manic symptoms patient's remembers, was receptive to discussion of role of MJ but won't quantify. Reported d/c Lamictal as didn't feel they could understand "my body cues". Now appetite is also improved. Discussed longer term risks associated with Zyprexa and that would recommended scheduled hs dose and monitoring. Physical Exam Psychiatric Orientation: alert and oriented x 3 Apperance: appropriately dressed and appropriately groomed Eye Contact: good eye contact Motor Behavior: no abnormal motor movements Speech: normal rate/rhythm/volume of speech Affect: + elated affect Mood: + anxious mood Thought Process: goal directed thought process Thought Content: reality based without delusions Suicidal Thoughts: denies suicidal thoughts Homicidal Thoughts: denies homicidal thoughts Hallucinations: no auditory hallucinations and no visual hallucinations Cognition: attention grossly intact and language grossly intact Estimated Intelligence: consistent with education level Insight: + limited insight Judgment: + limited judgement Vital Signs (Past 24 Hours) Last Vital Signs Temp 36.8 C 10/25/22 06:54 Pulse 67 10/25/22 07:04 Resp 16 10/25/22 06:54 BP 125/80 10/25/22 06:54 Pulse Ox 100 10/24/22 06:03 O2 Del Method Room Air 10/24/22 04:00 Results & Data ([facility]) Current Inpatient Medications Current Inpatient Medications: Current Inpatient Medications Acetaminophen (Acetaminophen 325 Mg Tab) 650 mg PO Q4H PRN PRN Reason: Headache or Minor Fever Stop: 11/23/22 06:36 Al Hydrox/Mg Hydrox/Simethicone (Aluminum/Magnesium Susp 30 Ml Udc) 30 ml PO Q4H PRN PRN Reason: GI Upset Stop: 11/23/22 06:36 Last Admin: 10/25/22 15:05 Dose: 30 ml Bismuth Subsalicylate (Bismuth Subsalicylate Liqd 236 Ml) 15 ml PO PRN PRN PRN Reason: Loose Stool Stop: 11/23/22 06:36 Hydroxyzine HCl (Hydroxyzine Hcl 25 Mg Tab) 50 mg PO HSZ PRN PRN Reason: Insomnia Stop: 11/23/22 06:36 Last Admin: 10/24/22 23:12 Dose: 50 mg Hydroxyzine HCl (Hydroxyzine Hcl 25 Mg Tab) 25 mg PO Q4H PRN PRN Reason: Anxiety Stop: 11/23/22 06:36 Magnesium Hydroxide (Magnesium Hydroxide Susp 30 Ml Udc) 30 ml PO DAILY PRN PRN Reason: Constipation Stop: 11/23/22 06:36 Olanzapine (Olanzapine Zydis 5 Mg Orally Dis. Tab) 5 mg PO BID PRN PRN Reason: agitation/psychosis Stop: 11/23/22 06:39 Last Admin: 10/25/22 11:04 Dose: 5 mg Sodium Chloride (Sodium Chloride 0.65% Na Soln 45 Ml ([place])) 1 - 2 sprays NA PRN PRN PRN Reason: Nasal Dryness/Congestion Stop: 11/23/22 06:36 Mental Health & Subst Abuse Tx Therapist Name of Therapist: ANGELINA Reed Flatwork Assembler Name of Flatwork Assembler: Seferino
[2022-10-25] MEDS ORDERED: OLANZapine ZYDIS 5 MG ORALLY DIS. TAB PO PRN (15:11)
[2022-10-25] MEDS: hydrOXYzine HCl 25 MG TAB PO PRN (20:59)
[2022-10-25] MEDS: OLANZapine ZYDIS 5 MG ORALLY DIS. TAB PO SCH (23:12)
[2022-10-26 11:07] LABS: Marijuana Quant, GCMS Urine 376 ng/mL (<5)
--- NOTE | 2022-10-26 13:56 | Psychiatric Progress Note ---
Date of Service October 26, 2022 Impression / Recommendations Rafa Whalen is a 22 year old gender non-binary individual with a history of MDD, INDIO and multiple recent psychiatric admissions in August and September who was admitted for concern for acute maria. Diagnostically consistent with unspecified psychosis/mood disorder with differential including acute maria 2/2 BPAD versus cannabis-induced mood disorder versus 2/2 medical cause given recent poor po intake and elevated WBC (though ED provider felt this was due to margination and saw no signs of acute infectious process). They are deemed in need of psychiatric hospitalization for diagnostic clarification, safety and stabiliz ation, medication management and development of further coping skills. MNPR due to non-binary, hx of sexually inappropriate behavior on admission 10/26/22: as per Dr. Lopez in [place]. maria resolving--suspect substance induced component exacerbating an underlying bipolar II variant. (1) Unspecified mood [affective] disorder: (2) Maria: (3) Cannabis use disorder: Plan 10/26/2022: continue current medication and treatment plan. 10/25/2022: continue liberal prn Zyprexa with Zyprexa 5 mg hs scheduled. Prn Vistaril for anxiety. 10/24/2022: The patient was admitted to the [facility] ([facility] inpatient mental health unit) on q15 min checks (behavioral with suicide precautions) for safety. The patient will participate in group, recreational, and milieu therapies and will be offered additional individual and family sessions as clinically appropriate. -Utilize olanzapine 5mg ODT BID for agitation/maria/psychosis -Hold on lmaictal and Effexor given unclear recent adherence and concern for maria -Elopement precautions Inventory Assets Strengths: supportive relationships, willing to get treatment Needs: safety and stabilization, medication adjustment, additional coping skills, increased outpatient services Suicide Risk Level Suicide Risk Level: Moderate (q15 min suicide checks) Risk Factors Assessment Male: No : Yes Do You Have Access To A Gun?: No Mental Health Diagnoses: Yes Substance Use Disorders: Yes Previous Attempt: No Previous Psychiatric Hospitalization: Yes Protective Factors Assessment Employed: No Stable Relationships: Yes Interval History Identifying Information SUZAN CARDOSO is a 22-year-old non-binary individual who currently lives in [place], has a history of MDD, INDIO, sensory reactivity, cannabis use and was admitted on 10/24/22 05:43 on a 201 voluntary commitment for concern for maria. Chief Complaint "just wondering about my treatment plan." Review of Systems Sleep Information Total Hours of Sleep: 6 Meal Information Percent Meal Consumed - Breakfast: 90 Percent Meal Consumed - Lunch: 90 Percent Meal Consumed - Dinner: 90 Nutrition Comment: Patient asleep Subjective Subjective Patient was seen & assessed and interval progress reviewed with nursing and sw. Patient reports ongoing improvement in mood, decrease in anxiety/racing thoughts. Can be hypertalkative or overly bright in group interactions last pm but readily redirectible. More appropriate this am. Asking appropriate questions about treatment. Physical Exam Psychiatric Orientation: alert and oriented x 3 Apperance: appropriately dressed and appropriately groomed Eye Contact: good eye contact Motor Behavior: + abnormal motor movements (facial snoot tic that was noted last hospitalization (predates Zyprexa)) Speech: normal rate/rhythm/volume of speech Affect: euthymic affect Mood: no depressed mood Thought Process: goal directed thought process Thought Content: reality based without delusions Suicidal Thoughts: denies suicidal thoughts Homicidal Thoughts: denies homicidal thoughts Hallucinations: no auditory hallucinations and no visual hallucinations Cognition: attention grossly intact and language grossly intact Estimated Intelligence: consistent with education level Insight: + limited insight Judgment: + limited judgement Vital Signs (Past 24 Hours) Last Vital Signs Temp 36.7 C 10/26/22 06:46 Pulse 77 10/26/22 06:46 Resp 16 10/26/22 06:46 BP 120/63 10/26/22 06:46 Pulse Ox 100 10/24/22 06:03 O2 Del Method Room Air 10/24/22 04:00 Results & Data ([facility]) Laboratory Results Laboratory Results - last 24 hr 10/23/22 19:30 U Marijuana THC Carboxy 376 H Drug Screen Comment SEE NOTE Current Inpatient Medications Current Inpatient Medications: Current Inpatient Medications Acetaminophen (Acetaminophen 325 Mg Tab) 650 mg PO Q4H PRN PRN Reason: Headache or Minor Fever Stop: 11/23/22 06:36 Al Hydrox/Mg Hydrox/Simethicone (Aluminum/Magnesium Susp 30 Ml Udc) 30 ml PO Q4H PRN PRN Reason: GI Upset Stop: 11/23/22 06:36 Last Admin: 10/25/22 15:05 Dose: 30 ml Bismuth Subsalicylate (Bismuth Subsalicylate Liqd 236 Ml) 15 ml PO PRN PRN PRN Reason: Loose Stool Stop: 11/23/22 06:36 Hydroxyzine HCl (Hydroxyzine Hcl 25 Mg Tab) 50 mg PO HSZ PRN PRN Reason: Insomnia Stop: 11/23/22 06:36 Last Admin: 10/24/22 23:12 Dose: 50 mg Hydroxyzine HCl (Hydroxyzine Hcl 25 Mg Tab) 25 mg PO Q4H PRN PRN Reason: Anxiety Stop: 11/23/22 06:36 Last Admin: 10/25/22 20:59 Dose: 25 mg Magnesium Hydroxide (Magnesium Hydroxide Susp 30 Ml Udc) 30 ml PO DAILY PRN PRN Reason: Constipation Stop: 11/23/22 06:36 Olanzapine (Olanzapine Zydis 5 Mg Orally Dis. Tab) 5 mg PO Q6 PRN PRN Reason: agitation/psychosis Stop: 11/23/22 14:23 Olanzapine (Olanzapine Zydis 5 Mg Orally Dis. Tab) 5 mg PO HS CARMEN Stop: 11/24/22 21:59 Last Admin: 10/25/22 23:12 Dose: 5 mg Sodium Chloride (Sodium Chloride 0.65% Na Soln 45 Ml ([place])) 1 - 2 sprays NA PRN PRN PRN Reason: Nasal Dryness/Congestion Stop: 11/23/22 06:36 Mental Health & Subst Abuse Tx Therapist Name of Therapist: ANGELINA Reed Base Filler Operator Name of Base Filler Operator: None
[2022-10-26] MEDS: hydrOXYzine HCl 25 MG TAB PO PRN (20:07)
[2022-10-26] MEDS: OLANZapine ZYDIS 5 MG ORALLY DIS. TAB PO SCH (21:41)
[2022-10-27] MEDS: hydrOXYzine HCl 25 MG TAB PO PRN (09:30)
--- NOTE | 2022-10-27 14:32 | Psychiatric Progress Note ---
Date of Service October 27, 2022 Impression / Recommendations Rafa Whalen is a 22 year old gender non-binary individual with a history of MDD, INDIO and multiple recent psychiatric admissions in August and September who was admitted for concern for acute maria. Diagnostically consistent with unspecified psychosis/mood disorder with differential including acute maria 2/2 BPAD versus cannabis-induced mood disorder versus 2/2 medical cause given recent poor po intake and elevated WBC (though ED provider felt this was due to margination and saw no signs of acute infectious process). They are deemed in need of psychiatric hospitalization for diagnostic clarification, safety and stabiliz ation, medication management and development of further coping skills. MNPR due to non-binary, hx of sexually inappropriate behavior on admission 10/27/22: as per Dr. Lopez in [place]. maria resolving--suspect substance induced component exacerbating an underlying bipolar II variant. improving (1) Unspecified mood [affective] disorder: (2) Maria: (3) Cannabis use disorder: Plan 10/27/2022: needs family meeting and finalize safety plan. 10/26/2022: continue current medication and treatment plan. 10/25/2022: continue liberal prn Zyprexa with Zyprexa 5 mg hs scheduled. Prn Vistaril for anxiety. 10/24/2022: The patient was admitted to the [facility] ([facility] mental health unit) on q15 min checks (behavioral with suicide precautions) for safety. The patient will participate in group, recreational, and milieu therapies and will be offered additional individual and family sessions as clinically appropriate. -Utilize olanzapine 5mg ODT BID for agitation/maria/psychosis -Hold on lmaictal and Effexor given unclear recent adherence and concern for maria -Elopement precautions Inventory Assets Strengths: supportive relationships, willing to get treatment Needs: safety and stabilization, medication adjustment, additional coping skills, increased outpatient services Suicide Risk Level Suicide Risk Level: Moderate (q15 min suicide checks) Risk Factors Assessment Male: No : Yes Do You Have Access To A Gun?: No Mental Health Diagnoses: Yes Substance Use Disorders: Yes Previous Attempt: No Previous Psychiatric Hospitalization: Yes Protective Factors Assessment Employed: No Stable Relationships: Yes Interval History Identifying Information SUZAN CARDOSO is a 22-year-old non-binary individual who currently lives in [place], has a history of MDD, INDIO, sensory reactivity, cannabis use and was admitted on 10/24/22 05:43 on a 201 voluntary commitment for concern for maria. Chief Complaint "I feel really normal, like myself for the first time in a long time." Review of Systems Sleep Information Total Hours of Sleep: 6.5 Meal Information Percent Meal Consumed - Breakfast: 100 Percent Meal Consumed - Lunch: 90 Percent Meal Consumed - Dinner: 90 Nutrition Comment: Patient asleep Subjective Subjective Patient was seen & assessed and interval progress reviewed with treatment team. Reviewed my impression re: role of antidepressant and MJ in precipitating lack of sleep/maria. Patient is tolerating Zyprexa and requiring less prns, desires to continue on lowest dose possible. Physical Exam Psychiatric Orientation: alert and oriented x 3 Apperance: appropriately dressed and appropriately groomed Eye Contact: good eye contact Speech: normal rate/rhythm/volume of speech Affect: euthymic affect Mood: + depressed mood Thought Process: goal directed thought process Thought Content: reality based without delusions Suicidal Thoughts: denies suicidal thoughts Homicidal Thoughts: denies homicidal thoughts Hallucinations: no auditory hallucinations and no visual hallucinations Cognition: attention grossly intact and language grossly intact Estimated Intelligence: consistent with education level Vital Signs (Past 24 Hours) Last Vital Signs Temp 36.8 C 10/27/22 06:36 Pulse 83 10/27/22 06:37 Resp 16 10/27/22 06:36 BP 120/87 10/27/22 06:37 Pulse Ox 100 10/24/22 06:03 O2 Del Method Room Air 10/24/22 04:00 Results & Data ([facility]) Current Inpatient Medications Current Inpatient Medications: Current Inpatient Medications Acetaminophen (Acetaminophen 325 Mg Tab) 650 mg PO Q4H PRN PRN Reason: Headache or Minor Fever Stop: 11/23/22 06:36 Al Hydrox/Mg Hydrox/Simethicone (Aluminum/Magnesium Susp 30 Ml Udc) 30 ml PO Q4H PRN PRN Reason: GI Upset Stop: 11/23/22 06:36 Last Admin: 10/25/22 15:05 Dose: 30 ml Bismuth Subsalicylate (Bismuth Subsalicylate Liqd 236 Ml) 15 ml PO PRN PRN PRN Reason: Loose Stool Stop: 11/23/22 06:36 Hydroxyzine HCl (Hydroxyzine Hcl 25 Mg Tab) 50 mg PO HSZ PRN PRN Reason: Insomnia Stop: 11/23/22 06:36 Last Admin: 10/26/22 20:07 Dose: 25 mg Hydroxyzine HCl (Hydroxyzine Hcl 25 Mg Tab) 25 mg PO Q4H PRN PRN Reason: Anxiety Stop: 11/23/22 06:36 Last Admin: 10/27/22 09:30 Dose: 25 mg Magnesium Hydroxide (Magnesium Hydroxide Susp 30 Ml Udc) 30 ml PO DAILY PRN PRN Reason: Constipation Stop: 11/23/22 06:36 Olanzapine (Olanzapine Zydis 5 Mg Orally Dis. Tab) 5 mg PO Q6 PRN PRN Reason: agitation/psychosis Stop: 11/23/22 14:23 Olanzapine (Olanzapine Zydis 5 Mg Orally Dis. Tab) 5 mg PO HS CARMEN Stop: 11/24/22 21:59 Last Admin: 10/26/22 21:41 Dose: 5 mg Sodium Chloride (Sodium Chloride 0.65% Na Soln 45 Ml ([place])) 1 - 2 sprays NA PRN PRN PRN Reason: Nasal Dryness/Congestion Stop: 11/23/22 06:36 Mental Health & Subst Abuse Tx Psychiatrist Name of Psychiatrist: Zayra Soto Psychiatrist's Date Of Appointment With Psychiatric Provider: 11/12/22 Time of Appointment with Psychiatrist: 2:30 PM Psychiatric Appointment Comment: This appointment is via telehealth. Therapist Name of Therapist: [facility] - Intake Therapist's Date of Therapist Appointment: 11/03/22 Time of Therapist Appointment: 11:30 PM Therapy Appointment Comment: [address], [address], [place] [address] Artists' Model Name of Artists' Model: None Post Discharge Appointments Primary Care Physician Name Of Family Doctor/PCP: Dr. Chung Primary Care Provider Appointment Comment: Please follow-up with PCP as needed.
[2022-10-27] MEDS: OLANZapine ZYDIS 5 MG ORALLY DIS. TAB PO SCH (21:25)
--- NOTE | 2022-10-28 15:32 | Discharge Summary ---
Date of Service October 28, 2022 History of Present Illness As per Dr. Lopez on admission: Marlee presented to the hospital with their partner and friend who expressed concern that they had not slept in the last three days. While in the ED they were initially agitated and required a dose of IM ativan and then slept some but awoke with ongoing signs of mood lability and disorganization. While in the ED they also reported hypersexuality and increased anxiety. Their partner reported they have been having poor recent po intake, not sleeping well and had been using large amounts of cannabis and unclear adherence with medications, particularly lamictal. They were discharged from [facility] on 10/06/2022 on Effexor XR 75mg daily and lamictal 50mg daily. On arrival to the [facility] Marlee was walking in the hallway this morning and shaking ice from their water bottle all over the floor of the hallway. They attempted to walk by a nurse into the stairwell and required redirection. They recognized me from their recent inpatient admission in late September. They were observed by nursing to be engaging in an attempt to masturbate in the entrance to their room. Wrote about [employer] lyrics and struggled to engage in any type of interview with me. Did then agree to take po dose of olanzapine and asked to move to the quiet room to sleep. Physical Exam Psychiatric See admission H&P and DOD assessment. Vital Signs (Past 24 Hours) Last Vital Signs Temp 36.7 C 10/28/22 11:34 Pulse 100 H 10/28/22 11:34 Resp 16 10/28/22 11:34 BP 149/90 H 10/28/22 11:34 Pulse Ox 100 10/28/22 11:34 O2 Del Method Room Air 10/24/22 04:00 Principal Diagnosis bipolar II disorder Psychiatric Data See daily stay summary. In short, safety was maintained and the patient was cooperative with care. Medication changes included d/c of Effexor (already non compliant with lamictal) and initiation of Zyprexa trial with Vistaril prn anxiety. They tolerated this well. A family session was held with parents and partner and safety plan was completed prior to discharge. Patient agreed in family's presence to abstain from MJ. Reviewed that bipolar II dx likely best represents the patient's condition although did have full blown maria typical of bipolar I seemed like substances played a significant component. Family and patient in agreement with this assessment. Re-reviewed need for longer term monitoring with Zyprexa given class/metabolic as patient started medication while acutely manic. Day of Discharge Assessment Today the patient voices readiness for discharge. They note improvement in mood and deny thoughts to harm self or others. Thoughts remain organized and they are improved from admission. There is no evidence of psychosis. They agree to take mediations as prescribed and keep follow-up appointments. They are stable for discharge to outpatient level of care. Transition of Care Transition Of Care Record: was reviewed with the patient Advance Directives Advance Directives Information Provided: Yes Advance Directives: No Mental Health Advance Directive: No Advance Directives on File: No Living Will: No Power of Rim Turning Machine Operator: No Advance Directives Reason:: Declines as Mental Health Visit. Suicide Risk Level Suicide Risk Level Comments: Suicide risk at discharge is deemed low as the patient is no longer requiring 24-hr monitoring, has a safety plan, and is free of suicidal ideation at discharge. Risk Factors Assessment Male: No : Yes Do You Have Access To A Gun?: No Mental Health Diagnoses: Yes Substance Use Disorders: Yes Previous Attempt: No Previous Psychiatric Hospitalization: Yes Protective Factors Assessment Employed: No Stable Relationships: Yes Tobacco Cessation at Discharge Tobacco Cessation Medication Prescribed at Discharge: Not Applicable/Non-Smoker Total Time Total Time Spent: Greater Than 30 Minutes Total Time Includes: Examination of the patient, Discharge Planning, Medication Reconciliation, Communication with other providers and As well as (family meeting) Discharge Data Lab Results 10/23/22 10/23/22 10/23/22 19:30 19:30 19:30 WBC 19.45 H RBC 4.37 Hgb 12.0 Hct 36.1 L MCV 82.6 MCH 27.5 MCHC 33.2 RDW Std Deviation 39.8 RDW Coeff of Frederic 13.2 Plt Count 420 H MPV 10.5 Immature Gran % (Auto) 0.6 Neut % (Auto) 88.4 Lymph % (Auto) 6.8 Forrest % (Auto) 3.9 Eos % (Auto) 0.0 Baso % (Auto) 0.3 Neut # (Auto) 17.21 H Lymph # (Auto) 1.32 Forrest # (Auto) 0.76 H Eos # (Auto) 0.00 Baso # (Auto) 0.05 Immature Gran # (Auto) 0.11 Sodium 139 Potassium 3.5 Chloride 107 Carbon Dioxide 15 L Anion Gap 17 H BUN 15 Creatinine 0.89 Est Cr Clr Drug Dosing 104.5 Est GFR ( Amer) 107.4 Est GFR (Non-Af Amer) 92.6 BUN/Creatinine Ratio 16.9 Glucose 77 Calcium 9.7 Total Bilirubin 0.7 AST 28 ALT 16 Alkaline Phosphatase 87 Total Protein 8.1 Albumin 5.1 H Globulin 3.0 Albumin/Globulin Ratio 1.7 TSH 0.730 Urine Color Urine Appearance Urine pH Ur Specific New Site Urine Protein Urine Glucose (UA) Urine Ketones Urine Blood Urine Nitrite Urine Bilirubin Urine Urobilinogen Ur Leukocyte Esterase Urine WBC (Auto) Urine RBC (Auto) U Hyaline Cast (Auto) U Epithel Cells (Auto) Urine Bacteria (Auto) Salicylates Urine Opiates Screen Ur Methadone, Qual Acetaminophen Urine Barbiturates Ur Phencyclidine (PCP) U Amphetamin/Meth Scrn MDMA (Ecstasy) Screen U Benzodiazepines Scrn Ur Cocaine Metabolite U Marijuana (THC) Screen U Marijuana THC Carboxy Drug Screen Comment Ethyl Alcohol mg/dL SARS-CoV-2 (PCR) 10/23/22 10/23/22 10/23/22 19:30 19:30 19:30 WBC RBC Hgb Hct MCV MCH MCHC RDW Std Deviation RDW Coeff of Frederic Plt Count MPV Immature Gran % (Auto) Neut % (Auto) Lymph % (Auto) Forrest % (Auto) Eos % (Auto) Baso % (Auto) Neut # (Auto) Lymph # (Auto) Forrest # (Auto) Eos # (Auto) Baso # (Auto) Immature Gran # (Auto) Sodium Potassium Chloride Carbon Dioxide Anion Gap BUN Creatinine Est Cr Clr Drug Dosing Est GFR ( Amer) Est GFR (Non-Af Amer) BUN/Creatinine Ratio Glucose Calcium Total Bilirubin AST ALT Alkaline Phosphatase Total Protein Albumin Globulin Albumin/Globulin Ratio TSH Urine Color Yellow Urine Appearance Cloudy A Urine pH 5.5 Ur Specific New Site 1.028 Urine Protein 1+ H Urine Glucose (UA) Negative Urine Ketones 4+ H Urine Blood Negative Urine Nitrite Negative Urine Bilirubin Negative Urine Urobilinogen Negative Ur Leukocyte Esterase Trace H Urine WBC (Auto) 10-30 H Urine RBC (Auto) 0-4 U Hyaline Cast (Auto) 1-5 U Epithel Cells (Auto) >30 H Urine Bacteria (Auto) 1+ H Salicylates < 3.0 L Urine Opiates Screen Ur Methadone, Qual Acetaminophen < 3 L Urine Barbiturates Ur Phencyclidine (PCP) U Amphetamin/Meth Scrn MDMA (Ecstasy) Screen U Benzodiazepines Scrn Ur Cocaine Metabolite U Marijuana (THC) Screen U Marijuana THC Carboxy Drug Screen Comment Ethyl Alcohol mg/dL < 10.0 SARS-CoV-2 (PCR) 10/23/22 10/23/22 10/24/22 19:30 19:30 00:45 WBC RBC Hgb Hct MCV MCH MCHC RDW Std Deviation RDW Coeff of Frederic Plt Count MPV Immature Gran % (Auto) Neut % (Auto) Lymph % (Auto) Forrest % (Auto) Eos % (Auto) Baso % (Auto) Neut # (Auto) Lymph # (Auto) Forrest # (Auto) Eos # (Auto) Baso # (Auto) Immature Gran # (Auto) Sodium 136 Potassium 4.0 Chloride 108 H Carbon Dioxide 18 L Anion Gap 10 BUN 11 Creatinine 0.72 Est Cr Clr Drug Dosing 129.2 Est GFR ( Amer) 138.7 Est GFR (Non-Af Amer) 119.7 BUN/Creatinine Ratio 15.3 Glucose 90 Calcium 8.6 Total Bilirubin AST ALT Alkaline Phosphatase Total Protein Albumin Globulin Albumin/Globulin Ratio TSH Urine Color Urine Appearance Urine pH Ur Specific New Site Urine Protein Urine Glucose (UA) Urine Ketones Urine Blood Urine Nitrite Urine Bilirubin Urine Urobilinogen Ur Leukocyte Esterase Urine WBC (Auto) Urine RBC (Auto) U Hyaline Cast (Auto) U Epithel Cells (Auto) Urine Bacteria (Auto) Salicylates Urine Opiates Screen Neg Ur Methadone, Qual Neg Acetaminophen Urine Barbiturates Neg Ur Phencyclidine (PCP) Neg U Amphetamin/Meth Scrn Neg MDMA (Ecstasy) Screen Neg U Benzodiazepines Scrn Neg Ur Cocaine Metabolite Neg U Marijuana (THC) Screen Pos H U Marijuana THC Carboxy 376 H Drug Screen Comment SEE NOTE Ethyl Alcohol mg/dL SARS-CoV-2 (PCR) 10/24/22 07:10 WBC RBC Hgb Hct MCV MCH MCHC RDW Std Deviation RDW Coeff of Frederic Plt Count MPV Immature Gran % (Auto) Neut % (Auto) Lymph % (Auto) Forrest % (Auto) Eos % (Auto) Baso % (Auto) Neut # (Auto) Lymph # (Auto) Forrest # (Auto) Eos # (Auto) Baso # (Auto) Immature Gran # (Auto) Sodium Potassium Chloride Carbon Dioxide Anion Gap BUN Creatinine Est Cr Clr Drug Dosing Est GFR ( Amer) Est GFR (Non-Af Amer) BUN/Creatinine Ratio Glucose Calcium Total Bilirubin AST ALT Alkaline Phosphatase Total Protein Albumin Globulin Albumin/Globulin Ratio TSH Urine Color Urine Appearance Urine pH Ur Specific New Site Urine Protein Urine Glucose (UA) Urine Ketones Urine Blood Urine Nitrite Urine Bilirubin Urine Urobilinogen Ur Leukocyte Esterase Urine WBC (Auto) Urine RBC (Auto) U Hyaline Cast (Auto) U Epithel Cells (Auto) Urine Bacteria (Auto) Salicylates Urine Opiates Screen Ur Methadone, Qual Acetaminophen Urine Barbiturates Ur Phencyclidine (PCP) U Amphetamin/Meth Scrn MDMA (Ecstasy) Screen U Benzodiazepines Scrn Ur Cocaine Metabolite U Marijuana (THC) Screen U Marijuana THC Carboxy Drug Screen Comment Ethyl Alcohol mg/dL SARS-CoV-2 (PCR) NEGATIVE Hospital Course (1) Unspecified mood [affective] disorder: (2) Maria: (3) Cannabis use disorder: Plan 10/27/2022: needs family meeting and finalize safety plan. 10/26/2022: continue current medication and treatment plan. 10/25/2022: continue liberal prn Zyprexa with Zyprexa 5 mg hs scheduled. Prn Vistaril for anxiety. 10/24/2022: The patient was admitted to the [facility] ([facility] mental health unit) on q15 min checks (behavioral with suicide precautions) for safety. The patient will participate in group, recreational, and milieu therapies and will be offered additional individual and family sessions as clinically appropriate. -Utilize olanzapine 5mg ODT BID for agitation/maria/psychosis -Hold on lmaictal and Effexor given unclear recent adherence and concern for maria -Elopement precautions Mental Health & Subst Abuse Tx Psychiatrist Name of Psychiatrist: Zayra Barraza - Dr. Soto Psychiatrist's Date Of Appointment With Psychiatric Provider: 11/12/22 Time of Appointment with Psychiatrist: 2:30 PM Psychiatric Appointment Comment: This appointment is via telehealth. Psychiatrist Release of Information: Obtained, Reviewed and Signed Therapist Name of Therapist: Mae Dubois - Intake Therapist's Date of Therapist Appointment: 11/03/22 Time of Therapist Appointment: 11:30 PM Therapy Appointment Comment: [address], [address], [place] [address] Therapist Release of Information: Obtained, Reviewed and Signed Management Intern Name of Management Intern: None Post Discharge Appointments Primary Care Physician Name Of Family Doctor/PCP: Dr. Chung Primary Care Provider Appointment Comment: Please follow-up with PCP as needed. Smoking Cessation Counseling Tobacco Cessation Medication Prescribed at Discharge: Not Applicable/Non-Smoker Contact Information Discharge Discharge Address: [address], [place] [address] Discharge Plan Discharge Items Patient Disposition: Home - Self-Care Reason For Visit: UNSPECIFIED MOOD DISORDER Discharge Diagnosis: bipolar II disorder Condition on Discharge: Good Activity: Resume your previous activity Non-emergency contact: Primary Care Provider, Psychiatrist and Therapist Call non-emergency contact if: you have any medication questions Follow-up/Referrals: Emily Chung MD [Primary Care Provider] - Diet: Regular Addtl Attending Provider Instructions: SPECIAL CARE INSTRUCTIONS: 1. Follow through with your scheduled aftercare appointments. If unable to keep an appointment, please call to reschedule. 2. Take your medication only as prescribed. Medication should not be changed or stopped without the approval of your doctor. In the event of worsening symptoms or concerns about side effects, contact your doctor immediately. 3. Utilize new healthy coping skills, anger management skills, and stress management skills learned during your hospitalization. Journal feelings and process them with a support person. Identify stressors or situations that may result in relapse, deterioration or inappropriate behaviors and develop a plan to deal with those issues. 4. If your coping skills are ineffective and you are in crisis, contact your outpatient providers for direction. If unable to reach your providers, please call the [facility] CRISIS LINE AT , go to the [facility] walk-in center at [address], [address], [place], or go to the closest Emergency Room. 5. Avoid alcohol and un-prescribed drugs. 6. You have been provided with the Mental Health Advance Directives Pamphlet for your review. 7. Your condition is stable for discharge to outpatient level of care, but recovery is an ongoing process. Ifthoughts to harm yourself or others return, follow the safety plan developed during your stay. Planning for a safe return home includes securing weapons. Our treatment team recommends weaponsbe removed from the home until your outpatient provider reassesses your progress. In rare cases where the items themselvescannot be removed, guns and ammunitionshould be secured separatelyand keys stored by a reliable personoutside of the home. If you were admitted on an involuntary commitment, the police or other legal authorities may be involved in this process. AFTERCARE APPOINTMENTS: * Please call your insurance company prior to your scheduled appointment to confirm your aftercare providers are covered. Take your insurance information to your appointments. WHO TO CALL AND WHEN: Medical Emergencies: For questions or emergencies related to your hospital stay, please contact the Inpatient Behavioral Health Unit at [phone]. A ferryboat captain is on-call 06/10 for the Behavioral Health Unit for emergencies At any time you feel your situation is an emergency, you may also call 911 immediately. Pending Studies at Discharge: No Stand-Alone Forms: My [facility], Smoking Cessation Medications and DC Order Prescriptions: New olanzapine 5 mg Tablet,Disintegrating 5 mg PO HS Qty: 30 0RF Changed hydroxyzine HCl 25 mg Tablet 25 mg PO Q6 PRN (Reason: panic or sleep) 30 Days Qty: 30 0RF Discontinued lamotrigine 100 mg tablet 50 mg PO DAILY 30 Days Qty: 15 0RF hydroxyzine HCl 50 mg tablet 50 mg PO HS PRN (Reason: insomnia) 30 Days Qty: 30 0RF venlafaxine 75 mg Capsule,Extended Release 24hr 75 mg PO QAM 30 Days Qty: 30 0RF Discharge Orders: Discharge Order (Routine); Ordered 10/28/22 Ordered By: Aysha Jaimes Admission Data Admit Date/Time: 10/24/22 05:43 Attending Provider: Aysha Jaimes Admit Provider: Rosetta Lopez Primary Care Provider: Emily Chung Other Interventions: Discharge Summary Assessment (RN) Last Done: 10/28/22 11:34 PSY Interdisciplinary Discharge Planning Last Done: 10/28/22 10:49 Coding Level of Care Code 39988 D/C day mgmt > 30 min Diagnoses Unspecified mood [affective] disorder F39 Maria F30.9 Cannabis use disorder F12.90
--- NOTE | 2022-10-29 11:41 | Communication Note ---
Date of Service: October 29, 2022 received call that patient's Zyprexa required a prior authorization and only received 5 day supply. Completed form for Zyprexa not realizing issue was ODT preparation (as what she was receiving here) and otherwise could have been shifted to straight PO tab. Per nursing request was approved but unlikely will be covered for refill. Patient to be notified and can call back for PO tab script if further issues at the pharmacy but should be authorized for this fill.
== END 2022-10-28 11:51 | disposition home or self-care (01) | DRG 885 ==
LOC: ED 18:00 → SUATTDRO 10-24 05:43 → 3S 10-24 05:43